=== PATIENT | male | born 1950 | race Caucasian/White ===

== ENCOUNTER → 2022-12-10 | Emergency (ER) | payer OTHER ==
[~2022-12-10] VITALS: Ht 200.7 cm; Wt 104.3 kg
== END ==
LOC: ER 07:47
DX: I10 Essential (primary) hypertension (principal); Z88.1 Allergy status to other antibiotic agents; Z79.899 Other long term (current) drug therapy; I25.10 Atherosclerotic heart disease of native coronary artery without angina pectoris; F17.210 Nicotine dependence, cigarettes, uncomplicated
CPT/HCPCS: 36415; 93005; 93010; A9270